=== PATIENT | male | born 1990 | race Caucasian/White ===

== ENCOUNTER 2022-03-05 10:24 | Emergency (ER) | payer SELFPAY ==
[2022-03-05 10:35] VITALS: PULSE 78; RESP 20; TEMP 36.9; O2SAT 97; BMI 28.2
[2022-03-05 10:43] VITALS: BP 125/80
[2022-03-05] MEDS: lidocaine HCL 2 % MULTIDOSE 20 ML VIAL INJECTION (11:12)
--- NOTE | 2022-03-05 11:18 | ED_ITS ---
HPI - General Adult General Chief complaint: Laceration/Wound Stated complaint: Lac left pointer nicoluckle Time Seen by Provider: 03/05/22 10:45 Source: patient Mode of arrival: ambulatory Limitations: no limitations History of Present Illness HPI narrative: 31-year-old male coming in today with a laceration to the left hand. Patient states he was opening up a pocket knife packaging with his current pocket knife when the knife slipped and he cut himself. Patient states that he has been drinking today. No other concerns. Last tetanus shot was updated last year. Related Data Allergies Allergy/AdvReac Type Severity Reaction Status Date / Time No Known Drug Allergies Allergy Verified 03/05/22 10:34 Review of Systems Status of ROS: Reports: 6 or more systems reviewed and unremarkable except as noted in History and below [facility] Social History Smoking Status: Current some day smoker What tobacco products do you use: cigarettes Years smoked: 15 Do you use any of these nicotine containing products: E-Cigarettes and Vaping Products Second hand tobacco smoke exposure: No How often do you have a drink containing alcohol: 2-3 times a week How many standard drinks containing alcohol do you have on a typical day: 3 or 4 How often do you have six or more drinks on one occasion: Monthly AUDIT-C Alcohol total score: 6 Non-prescribed substance use: denies use service: No Exam Narrative: Exam Narrative: Well-nourished well-developed patient in no acute distress. Alert and oriented. Does appear slightly intoxicated with elevated mood and slurred speech. HEENT: Normocephalic atraumatic. Pupils are equally round reactive to light. Extraocular muscles are intact. Conjunctivae are moist without any icterus noted. Extremities: Patient has approximately a 1 in laceration over the lateral border at the base of the pointer finger. Laceration extends through the dermis into the subcutaneous tissue. Does not penetrate through the subcutaneous tissue to underlying structures. Skin: Well perfused. Const: Vital Signs, click to edit/add: Vital Signs - 24 hr 03/05/22 10:35 03/05/22 10:43 Temperature 98.5 F Pulse Rate [Pulse Oximeter] 78 Respiratory Rate 20 Blood Pressure [Le ft Upper Arm] 125/80 Pulse Oximetry 97 Oxygen Delivery Me thod Room Air Course Course Hospital Course: Hand was cleaned in the usual sterile manner and wound irrigated with normal saline and wound cleanser. Wound was anesthetized with 2% lidocaine without epinephrine. Eight sutures were placed with 4-0 Ethilon without complications. Wound was cleaned and dressed per nursing. Vital Signs Vital signs: Initial Vital Signs Temperature 98.5 F 03/05/22 10:35 Temperature Source Temporal Artery Scan 03/05/22 10:35 Pulse Rate 78 03/05/22 10:35 Respiratory Rate 20 03/05/22 10:35 Pulse Oximetry 97 03/05/22 10:35 Oxygen Delivery Method 03/05/22 10:35 Vital Signs Temperature 98.5 F 03/05/22 10:35 Pulse Rate 78 03/05/22 10:35 Respiratory Rate 20 03/05/22 10:35 Pulse Oximetry 97 03/05/22 10:35 Oxygen Delivery Method 03/05/22 10:35 Temperature 98.5 F 03/05/22 10:35 Pulse Rate 78 03/05/22 10:35 Respiratory Rate 20 03/05/22 10:35 Blood Pressure 125/80 03/05/22 10:43 Pulse Oximetry 97 03/05/22 10:35 Oxygen Delivery Method 03/05/22 10:35 Medical Decision Making MDM Narrative Medical decision making narrative: 31-year-old male laceration to the left hand treated per above. We discussed wound hygiene, signs symptoms of infection, reasons to return for follow-up and suture removal in 7-10 days. Patient had no other questions. Discharge Plan Discharge Clinical Impression: Laceration Patient Disposition: Home, Self-Care Condition: Improved Additional Instructions: Keep wound clean and dry. Okay to shower like you normally would, however, do not soak your hands such as swimming or taking a bath. Suture should come out in 7-10 days with your primary care provider, make that appointment today. Follow-up in the urgent care if the area starts to turn red or purulent drainage comes out of the wound. Follow Up/Referrals: Provider,Not a Local [Primary Care Provider] - Stand Alone Forms: [employer] Info Instructions
== END 2022-03-05 11:30 | disposition home or self-care (01) ==
PROVIDERS: Emergency Provider Family Medicine
DX: S61.412A Laceration without foreign body of left hand, initial encounter (principal); W26.0XXA Contact with knife, initial encounter; Y93.89 Activity, other specified; Y92.9 Unspecified place or not applicable; Y99.8 Other external cause status
CPT/HCPCS: 12001; 99281; 99284